=== PATIENT | male | born 1975 | race Hispanic/Latino ===

== ENCOUNTER 2020-07-15 19:59 | Emergency (ER) | payer OTHER, SELFPAY ==
--- NOTE | ~2020-07-15 | XR_ITS ---
EXAMINATION: XR chest 2V EXAM DATE: 07/15/2020 22:37 INDICATION: Cough. Chills. TECHNIQUE: Frontal and lateral projections of the chest obtained and reviewed. There is no prior braulio dy for comparison. FINDINGS: Patchy right upper lobe pneumonia. There are no pleural effusions. The cardiomediastina l silhouette is within normal limits. There is no pneumothorax suspected. The bones and soft tissue s are unremarkable. IMPRESSION: Patchy right upper lobe pneumonia. Reviewed, dictated and finalized at location A.
[2020-07-15 20:10] VITALS: BP 120/86; PULSE 99; RESP 18; TEMP 36.6; O2SAT 98
--- NOTE | 2020-07-15 22:11 | ED.URI ---
HPI - URI/Sore Throat General Chief Complaint: Upper Respiratory Infection Stated Complaint: Cough, chills Time Seen by Provider: 07/15/20 22:02 Source: patient Mode of arrival: ambulatory Limitations: no limitations History of Present Illness HPI Narrative: Patient is a 45-year-old male complaining of cough nasal congestion and body aches that started 1 week ago. Patient states that he had chills few days ago but not now. Patient denies any fever. Patient denies any chest pain or shortness of breath. Patient denies any abdominal pain, nausea, vomiting, diarrhea. Patient states that he saw his doctor 1 week ago for same complaints had a chest x-ray done here at this hospital and states that they never called him regarding the results. Related Data Home Medications Medication Instructions Recorded Confirmed albuterol sulfate INHALATION 07/15/20 Allergies Allergy/AdvReac Type Severity Reaction Status Date / Time No Known Allergies Allergy Verified 07/15/20 21:53 Review of Systems Review of Systems: All systems reviewed & are unremarkable except as noted in HPI and below Constitutional: Constitutional: Denies excessive sweating, Denies fatigue, Denies fever(s), Denies headache(s), Denies lethargy, Denies malaise, Denies weakness and Denies weight loss Eyes: Eyes: Denies blurry vision, Denies change in vision and Denies loss of vision ENT: Denies dizziness, Denies ear discharge, Denies headache(s), Denies lip swelling, Denies epistaxis, Denies neck pain, Denies throat swelling and Denies tongue swelling Cardiovascular: Cardiovascular: Denies chest pain, Denies chest pain at rest, Denies chest pain with activity, Denies diaphoresis, Denies rapid heart rate, Denies edema, Denies irregular heart rhythm, Denies lightheadedness, Denies palpitations, Denies dyspnea and Denies dyspnea on exertion Respiratory: Respiratory: Denies chest congestion, Denies hemoptysis, Denies dyspnea and Denies dyspnea on exertion Gastrointestinal: Gastrointestinal: Denies abdominal pain, Denies melena, Denies hematochezia, Denies diarrhea, Denies nausea, Denies vomiting and Denies hematemesis Musculoskeletal: Musculoskeletal: Denies abnormal gait, Denies deformity, Denies joint swelling, Denies limited range of motion, Denies neck pain and Denies numbness Neurologic: Denies Abnormal speech present, Denies abnormal gait, Denies confusion, Denies dizziness, Denies headache(s), Denies focal weakness, Denies loss of vision, Denies numbness, Denies Other visual disturbances, Denies Sensory deficit (Neuro) and Denies weakness Psychiatric: Psychiatric: Denies confusion, Denies depression, Denies auditory hallucinations, Denies homicidal ideation and Denies suicidal ideation Endocrine: Endocrine: Denies cold intolerance, Denies excessive sweating, Denies fatigue, Denies heat intolerance and Denies palpitations Hematologic/Lymphatic: Hematologic/Lymphatic: Denies easy bleeding and Denies easy bruising Allergic/Immunologic: Allergic/Immunologic: Denies lip swelling, Denies throat swelling and Denies tongue swelling PMFSH Comments Past medical history: None Family history: Negative for [place] negative for diabetes negative hypertension Social history: Non-smoker no EtOH or drug use Exam Const: General: cooperative, healthy appearing, comfortable, no acute distress, well developed, alert and awake; No confusion Orientation/consciousness: oriented to person, oriented to place, oriented to time, patient oriented x3 and No confusion Limitations: no limitations HENMT: Head: normal to inspection, normocephalic and atraumatic Ears: hearing grossly normal bilaterally, TM normal on the right and TM normal on the left General nose exam: Normal external nose present, Normal nares present and No nasal discharge present Face and sinus: normal facial exam Mouth: Yes Normal oral and palatal mucosa present, Yes lip normal, Yes tongue normal and Yes oropharynx normal Thro
[2020-07-16 00:15] VITALS: BP 133/89; PULSE 92; RESP 20; TEMP 36.8; O2SAT 97
[2020-07-16] MEDS: DOXYCYCLINE HYCLATE 100 MG TABLET PO (00:15)
== END 2020-07-16 00:15 | disposition home or self-care (01) ==
PROVIDERS: Emergency Provider Emergency Medicine; PCP Emergency Medicine
DX: J18.9 Pneumonia, unspecified organism (principal)
CPT/HCPCS: 71046; 99283; A9270

== ENCOUNTER 2020-08-04 08:07 | Outpatient (CLI) | payer OTHER, SELFPAY ==
--- NOTE | ~2020-08-04 | XR_ITS ---
XR chest 2V DATE: 08/04/2020 08:38 INDICATION: Chest pain TECHNIQUE: PA and lateral views COMPARISON: 07/15/2020 2 view chest FINDINGS: Normal heart size. No hilar or mediastinal enlargement. The lungs appear clear of infiltrat e or consolidation. No pleural effusion or pulmonary vascular congestion or pneumothorax. Degenerative spurring of the thoracic spine. IMPRESSION: No active cardiopulmonary disease Reviewed, dictated and finalized at location A.
[2020-08-04 08:32] LABS: Hematocrit 38.3 % (42.0-52.0); Mean Corpuscular HGB Conc 33.9 g/dl (32-36); Mean Corpuscular Hemoglobin 29.7 pg (26-34); Mean Corpuscular Volume 87.6 fl (80-100); Platelet Count Result 404 k/mm3 (150-375); Red Blood Count 4.37 M/mm3 (4.6-6.20); Red Cell Distribution Width 12.9 % (11.5-14.5); White Blood Count 5.7 K/mm3 (4.5-10.0)
[2020-08-04 08:42] LABS: Alanine Aminotransferase 40 U/L (4-50); Albumin Level 4.4 g/dL (3.5-5.1); Alkaline Phosphatase 99 U/L (38-126); Anion Gap 3 mmol/L (8-16); Aspartate Amino Transferase 34 U/L (17-59); Bilirubin,Total 0.5 mg/dL (0.2-1.3); Blood Urea Nitrogen 11 mg/dL (9-20); Calcium 8.7 mg/dL (8.4-10.2); Carbon Dioxide 31 mmol/L (22-30); Chloride 108 mmol/L (98-107); Cholesterol 155 mg/dL (0-200); Estimated Glomerular Filt Rate > 60; Glucose 108 mg/dL (75-110); HDL Direct 38 mg/dL; Potassium 4.1 mmol/L (3.4-5.0); Sodium 142 mmol/L (137-145); Triglycerides 96 mg/dL (<150)
[2020-08-04 08:53] LABS: LDL Cholesterol Direct 85 mg/dL
[2020-08-04 08:55] LABS: Creatinine Urine 166.2 mg/dL
[2020-08-04 09:00] LABS: MALB Creatinine Ratio 13.5 mg/g (0-30); Microalbumin Urine Random 22.5 mg/L (0-16.7)
[2020-08-04 09:01] LABS: Hemoglobin A1C 5.8 % (<5.7)
[2020-08-04 09:38] LABS: Free T4 Free Thyroxine 0.89 ng/mL (0.78-2.19)
== END 2020-08-04 08:08 | disposition home or self-care (01) ==
PROVIDERS: PCP Emergency Medicine; Visit Provider Emergency Medicine
DX: E78.5 Hyperlipidemia, unspecified (principal); J18.9 Pneumonia, unspecified organism
CPT/HCPCS: 36415; 71046; 80053; 80061; 82043; 83036; 84439; 84443; 85027

== ENCOUNTER 2021-07-06 07:47 | Outpatient (CLI) | payer OTHER, SELFPAY ==
[2021-07-06 08:20] LABS: Hematocrit 39.2 % (42.0-52.0); Hemoglobin 13.2 g/dL (14.0-18.0); Mean Corpuscular HGB Conc 33.7 g/dl (32-36); Mean Corpuscular Volume 89.1 fl (80-100); Mean Platelet Volume 9.7 fl (7.4-10.4); Platelet Count Result 348 k/mm3 (150-375); White Blood Count 6.1 K/mm3 (4.5-10.0)
== END 2021-07-06 07:48 | disposition home or self-care (01) ==
LOC: ANHLAB 07:49
PROVIDERS: PCP Emergency Medicine; Visit Provider Emergency Medicine
DX: D64.9 Anemia, unspecified (principal)
CPT/HCPCS: 36415; 85027

== ENCOUNTER → 2021-08-17 08:12 | Outpatient (CLI) | payer OTHER, SELFPAY ==
--- NOTE | ~2021-08-17 | US_ITS ---
EXAMINATION: US abdomen complete DATE: 08/17/2021 08:54 INDICATION: Right upper quadrant pain. TECHNIQUE: Multiple grayscale and Doppler ultrasound images of the abdomen were obtained. COMPARISON: None available FINDINGS: Bowel gas mostly obscures visualization of the pancreas. Echogenic liver. No surface nodula rity. Normal hepatopetal flow in the main portal vein. The gallbladder is partially collapsed, likely contributing to a measured wall thickness of up to 0.4 cm. No gallbladder wall thickening or gallsto willi detected. The normal common bile duct measures 0.3. There was no sonographic Dunlap sign. The vis ualized portions of the aorta and inferior vena cava are normal. The right kidney measures 9.5 cm. The left kidney measures 10.2 cm. The kidneys demonstrate normal pa renchymal echogenicity. There is no hydronephrosis. The spleen is normal in appearance and measures 9 .2 cm. IMPRESSION: 1. Likely steatotic liver, noting that hepatitis and fibrosis can appear similarly. 2. Otherwise normal abdominal ultrasound findings. Reviewed, dictated and finalized at location K. IMPRESSION: 1. Likely steatotic liver, noting that hepatitis and fibrosis can appear simila rly. 2. Otherwise normal abdominal ultrasound findings.
== END ==
PROVIDERS: PCP Emergency Medicine; Visit Provider Emergency Medicine
DX: R10.11 Right upper quadrant pain (principal)
CPT/HCPCS: 76700

== ENCOUNTER 2021-12-07 08:29 | Outpatient (CLI) | payer OTHER, SELFPAY ==
[2021-12-07 08:56] LABS: Hematocrit 39.4 % (42.0-52.0); Hemoglobin 13.3 g/dL (14.0-18.0); Mean Corpuscular HGB Conc 33.8 g/dl (32-36); Mean Corpuscular Hemoglobin 30.2 pg (26-34); Mean Corpuscular Volume 89.5 fl (80-100); Mean Platelet Volume 9.6 fl (7.4-10.4); Platelet Count Result 340 k/mm3 (150-375); Red Cell Distribution Width 12.9 % (11.5-14.5); White Blood Count 5.4 K/mm3 (4.5-10.0)
[2021-12-07 09:06] LABS: Appearance Urine Clear (Clear); Bilirubin Urine Negative (Negative); Blood Urine Negative (Negative); Color Urine Yellow (Yellow); Glucose Urine UA Negative (Negative); Ketones Urine Negative (Negative); Leukocyte Esterase Ur Negative LEU/UL (NEGATIVE); Nitrate Urine Negative (Negative); Protein Urine Negative (Negative); Specific Grav Ur 1.025 (1.001-1.035); Urobilinogen Urine 0.2 mg/dL (<2.0); pH Urine 5.5 (5.0-9.0)
[2021-12-07 09:10] LABS: Alanine Aminotransferase 25 U/L (6-50); Albumin Level 4.6 g/dL (3.5-5.1); Alkaline Phosphatase 92 U/L (38-126); Anion Gap 8 mmol/L (8-16); Aspartate Amino Transferase 27 U/L (17-59); Bilirubin,Total 0.6 mg/dL (0.2-1.3); Blood Urea Nitrogen 12 mg/dL (9-20); Carbon Dioxide 27 mmol/L (22-30); Chloride 107 mmol/L (98-107); Cholesterol 173 mg/dL (0-200); Estimated Glomerular Filt Rate > 60; Glucose 99 mg/dL (65-110); HDL Direct 41 mg/dL; Sodium 142 mmol/L (137-145); Triglycerides 125 mg/dL (<150)
[2021-12-07 09:11] LABS: Hemoglobin A1C 5.5 % (<5.7)
[2021-12-07 09:22] LABS: LDL Cholesterol Direct 90 mg/dL
[2021-12-07 09:28] LABS: Add Urine Microscopic? NO
[2021-12-07 09:31] LABS: Creatinine Urine 156.8 mg/dL
[2021-12-07 09:34] LABS: MALB Creatinine Ratio 3.9 mg/g (0-30); Microalbumin Urine Random 6.1 mg/L (0-16.7)
[2021-12-07 09:38] LABS: Prostate Specific Antigen 0.5 ng/mL (< OR = 4.0)
[2021-12-07 09:45] LABS: Free T4 Free Thyroxine 1.02 ng/mL (0.78-2.19)
[2021-12-07 10:00] LABS: Hepatitis B Surface Antigen Negative (Negative)
[2021-12-07 10:06] LABS: HAV RESULT Negative (Negative); Hepatitis B Core IgM Result Negative (Negative)
[2021-12-07 10:18] LABS: Hepatitis C Virus Antibody Negative (Negative)
== END 2021-12-07 08:30 | disposition home or self-care (01) ==
LOC: ANHLAB 08:31
PROVIDERS: PCP Emergency Medicine; Visit Provider Emergency Medicine
DX: E78.5 Hyperlipidemia, unspecified (principal); M19.90 Unspecified osteoarthritis, unspecified site; K76.0 Fatty (change of) liver, not elsewhere classified
CPT/HCPCS: 36415; 80053; 80061; 80074; 81003; 82043; 83036; 84153; 84439; 84443; 85027

== ENCOUNTER 2022-06-10 14:51 | Outpatient (CLI) | payer OTHER, SELFPAY ==
[2022-06-10 15:09] LABS: Basophils Percent Auto 0.7 % (0.2-1.2); Eosinophils Absolute Auto 0.1 K/mm3 (0-0.3); Eosinophils Percent Auto 2.1 % (0-4.4); Hematocrit 40.2 % (42.0-52.0); Hemoglobin 13.9 g/dL (14.0-18.0); Immature Granulocyte Absolute 0.03 K/mm3 (0.00-0.031); Immature Granulocyte Percent A 0.5 % (0-0.5); Lymphocytes Absolute Auto 1.83 K/mm3 (0.9-3.2); Lymphocytes Percent Auto 31.7 % (18.3-44.2); Mean Corpuscular HGB Conc 34.6 g/dl (32-36); Mean Corpuscular Hemoglobin 30.9 pg (26-34); Mean Corpuscular Volume 89.3 fl (80-100); Mean Platelet Volume 9.8 fl (7.4-10.4); Monocytes Absolute Auto 0.7 K/mm3 (0.1-0.6); Monocytes Percent Auto 11.2 % (2.6-8.5); Neutrophils Absolute Auto 3.1 K/mm3 (1.3-6.7); Neutrophils Percent Auto 53.8 % (45.5-73.1); Platelet Count Result 410 k/mm3 (150-375); Red Cell Distribution Width 12.7 % (11.5-14.5); White Blood Count 5.8 K/mm3 (4.5-10.0)
[2022-06-10 16:50] LABS: Iron 68 ug/dL (49-181)
[2022-06-10 16:55] LABS: Alanine Aminotransferase 42 U/L (6-50); Albumin Level 4.6 g/dL (3.5-5.1); Alkaline Phosphatase 110 U/L (38-126); Anion Gap 7 mmol/L (8-16); Aspartate Amino Transferase 37 U/L (17-59); Bilirubin,Total 0.4 mg/dL (0.2-1.3); Blood Urea Nitrogen 16 mg/dL (9-20); Calcium 8.7 mg/dL (8.4-10.2); Carbon Dioxide 32 mmol/L (22-30); Chloride 102 mmol/L (98-107); Estimated Glomerular Filt Rate > 60; Glucose 107 mg/dL (65-110); Potassium 3.9 mmol/L (3.4-5.0); Sodium 141 mmol/L (137-145)
[2022-06-10 16:59] LABS: Percent Iron Saturation 21 % (20-50)
[2022-06-10 18:35] LABS: Folic Acid 7.9 ng/mL (2.76->20)
== END 2022-06-10 14:52 | disposition home or self-care (01) ==
PROVIDERS: PCP Emergency Medicine; Visit Provider Internal Medicine Hematology & Oncology
DX: D64.9 Anemia, unspecified (principal)
CPT/HCPCS: 36415; 80053; 82607; 82728; 82746; 83540; 83550; 85025

== ENCOUNTER 2022-11-22 07:23 | Outpatient (CLI) | payer OTHER, SELFPAY ==
[2022-11-22 08:20] LABS: Appearance Urine Clear (Clear); Bilirubin Urine Negative (Negative); Blood Urine Negative (Negative); Color Urine Yellow (Yellow); Glucose Urine UA Negative (Negative); Hematocrit 40.2 % (42.0-52.0); Hemoglobin 13.6 g/dL (14.0-18.0); Ketones Urine Negative (Negative); Leukocyte Esterase Ur Negative LEU/UL (NEGATIVE); Mean Corpuscular HGB Conc 33.8 g/dl (32-36); Mean Corpuscular Hemoglobin 30.4 pg (26-34); Mean Corpuscular Volume 89.7 fl (80-100); Mean Platelet Volume 9.9 fl (7.4-10.4); Nitrate Urine Negative (Negative); Platelet Count Result 360 k/mm3 (150-375); Protein Urine Negative (Negative); Red Blood Count 4.48 M/mm3 (4.6-6.20); Red Cell Distribution Width 12.5 % (11.5-14.5); Specific Grav Ur 1.012 (1.001-1.035); Urobilinogen Urine 0.2 mg/dL (<2.0); White Blood Count 5.3 K/mm3 (4.5-10.0)
[2022-11-22 08:48] LABS: Add Urine Microscopic? NO
[2022-11-22 09:06] LABS: Creatinine Urine 99.4 mg/dL
[2022-11-22 09:21] LABS: Free T4 Free Thyroxine 1.12 ng/mL (0.78-2.19); Vitamin D 25 Hydroxy 31.8 ng/mL
[2022-11-22 09:47] LABS: MALB Creatinine Ratio < 6.0 mg/g (0-30); Microalbumin Urine Random < 6.0 mg/L (0-16.7)
[2022-11-22 10:46] LABS: Alanine Aminotransferase 38 U/L (6-50); Albumin Level 4.4 g/dL (3.5-5.1); Alkaline Phosphatase 91 U/L (38-126); Anion Gap 9 mmol/L (8-16); Aspartate Amino Transferase 35 U/L (17-59); Bilirubin,Total 0.5 mg/dL (0.2-1.3); Blood Urea Nitrogen 7 mg/dL (9-20); Calcium 8.6 mg/dL (8.4-10.2); Carbon Dioxide 28 mmol/L (22-30); Chloride 106 mmol/L (98-107); Cholesterol 206 mg/dL (0-200); Estimated Glomerular Filt Rate > 60; Glucose 93 mg/dL (65-110); HDL Direct 34 mg/dL; Hemoglobin A1C 5.5 % (<5.7); Potassium 3.8 mmol/L (3.4-5.0); Sodium 143 mmol/L (137-145); Triglycerides 178 mg/dL (<150)
[2022-11-22 10:56] LABS: LDL Cholesterol Direct 123 mg/dL
[2022-11-22 11:12] LABS: Prostate Specific Antigen 0.5 ng/mL (< OR = 4.0)
== END 2022-11-22 07:24 | disposition home or self-care (01) ==
LOC: ANHLAB 07:25
PROVIDERS: PCP Emergency Medicine; Visit Provider Emergency Medicine
DX: E11.9 Type 2 diabetes mellitus without complications (principal); K76.0 Fatty (change of) liver, not elsewhere classified; E78.5 Hyperlipidemia, unspecified; H53.8 Other visual disturbances
CPT/HCPCS: 36415; 80053; 80061; 81003; 82043; 82306; 83036; 84153; 84439; 84443; 85027

== ENCOUNTER 2024-09-17 07:37 | Outpatient (CLI) | payer OTHER, SELFPAY ==
--- OUTSIDE RECORDS SUMMARY | 2024-09-17 07:43 | XMS_ITS | Clinical Summary ---
Author Organization [facility] Address [address] [place] [address] Care Team Providers Care Junior Graphic Designer Name Role Phone Unavailable Primary Care Provider Unavailabl e Allergies No known active allergies Medications No known medications Active Problems No known active problems Family History Medical History Relation Name Comments Diabetes Brother No Known Problems Daughter No Known Problems Father Diabetes Mother No Known Problems Son 1 No Known Problems Son 2 No Known Problems Son 3 Relation Name Status Comments Brother Alive Daughter Alive Father Mother Alive Son 1 Alive Son 2 Alive Son 3 Alive Social History Tobacco Use Types Packs/Day Years Used Date Smoking Tobacco: Never Smokeless Tobacco: Never Tobacco Cessation:Counseling Given: Not Answered Alcohol Use Standard Drinks/Week Comments Yes 7 (1 standard drink = 0.6 oz pur e alcohol) Sex and Gender Information Value Date Recorded Sex Assigned at Not on file Legal Sex Male 11:48 AM CDT Gender Identity Not on file Sexual Orientation Not on file Last Filed Vital Signs Vital Sign Reading Time Taken Comments Blood Pressure 126/75 07/15/2022 1:57 PM CDT Pulse 73 07/15/2022 1:57 PM CDT Temperature 36.6 C (97.8 F) 07/15/2022 1:57 PM CDT Respiratory Rate 10 07/15/2022 1:57 PM CDT Oxygen Saturation 98% 07/15/2022 1:57 PM CDT Inhaled Oxygen Concentration - - Weight 90.7 kg (200 lb) 07/15/2022 1:57 PM CDT Height 167.6 cm (5' 6) 06/10/2022 1:43 PM MARIONETTE PERFORMER Body Mass Index 32.28 06/10/2022 1:43 PM MARIONETTE PERFORMER Plan of Treatment Health Maintenance Due Date Last Done Comments DTAP/TDAP/TD VACCINES (1 - Tdap) 01/04/1992 HEPATITIS B VACCINES (1 of 3 - 19+ 3-dose series) 12/07 COLORECTAL SCREENING 2018 Colorectal Cancer Screening 2018 FIT-DNA Q 3 years 2018 FIT/FOBT Q 1 year 2018 Flex Sig/CT Colonography Q 5 years 2018 ZOSTER VACCINE (1 of 2) 2023 INFLUENZA VACCINE (#1) 2023 Insurance Member Subscriber Plan / Payer (Ef fective 2022-Present) Name:Eddie Pond Relation to Subscriber:Self Name:Eddie Pond Payer ID:[id number] (NAIC) Type:HMO Address: [facility] [address] [place] [id number]
--- OUTSIDE RECORDS SUMMARY | 2024-09-17 07:43 | XMS_ITS | Referral Summary ---
Author Organization [facility] Address [address] [place] [address] Care Team Providers Care Fpga Engineer Name Role Phone Adrien Potter MD Primary Care Provider [phone] Social History Tobacco Use Types Packs/Day Years Used Date Smoking Tobacco: Never Assessed Personal Safety Answer Date Recorded Getting School Help Needed Not on file 06/20 Sex and Gender Information Value Date Recorded Sex Assigned at Not on file Legal Sex Male 7:45 PM SUPERVISOR MIXING Gender Identity Not on file Sexual Orientation Not on file Last Filed Vital Signs Vital Sign Reading Time Taken Comments Blood Pressure 126/77 02/28/2021 12:06 PM SUPERVISOR MIXING Pulse 72 02/28/2021 12:06 PM SUPERVISOR MIXING Temperature 36.6 C (97.8 F) 02/28/2021 12:06 PM SUPERVISOR MIXING Respiratory Rate 18 02/28/2021 12:06 PM SUPERVISOR MIXING Oxygen Saturation 99% 02/28/2021 12:06 PM SUPERVISOR MIXING Inhaled Oxygen Concentration - - Weight 90.7 kg (200 lb) 02/28/2021 12:06 PM SUPERVISOR MIXING Height 165.1 cm (5' 5) 07/11/2018 4:59 PM CDT Body Mass Index 33.28 07/11/2018 4:59 PM CDT Plan of Treatment Not on file Insurance [facility] HMO/PPO Address: [facility] [address] [place] [address] Care Teams Fpga Engineer Relationship Specialty Start Date End Date Adrien Potter MD PCP - General 07/09/19
--- OUTSIDE RECORDS SUMMARY | 2024-09-17 07:43 | XMS_ITS | Clinical Summary ---
Author Organization [facility] Care Team Providers Care Dynamite Packing Machine Feeder Name Role Phone Unavailable Primary Care Provider Unavailabl e Social History Tobacco Use Types Packs/Day Years Used Date Smoking Tobacco: Never Assessed Sex and Gender Information Value Date Recorded Sex Assigned at Not on file Legal Sex Male 11:41 AM DRY MIXER Gender Identity Not on file Sexual Orientation Not on file Plan of Treatment Health Maintenance Due Date Last Done Comments Hepatitis C Virus (HCV) Screening 1973 TdaP Immunization 1973 Hepatitis B Immunization (1 of 3 - 19+ 3-dose series) 01/04/1992 Colonoscopy 2018 Colorectal Cancer Screening 2018 Cologuard 2023 Immunochemical Fecal Occult Blood 2023 Pneumococcal Immunization (5 0+ years) (1 of 1 - PCV) 2023 Zoster Immunization (1 of 2) 2023 Influenza Immunization (#1) 2023 SARS-COV-2 Immunization ( - season) 2023 Respiratory Syncytial Virus (RSV) Immunization (Adult) (1 - 1-dose 75+ series) 01/04/2048 Meningococcal Immunization (ACWY) Aged Out No longer eligible based on patient's age to complete this topic Pneumococcal Immunization Combined Aged Out No longer eligible based on patient's age to complete this topic Rotavirus Immunization Aged Out No lo nger eligible based on patient's age to complete this topic
--- OUTSIDE RECORDS SUMMARY | 2024-09-17 07:43 | XMS_ITS | Clinical Summary ---
Author Organization [facility] Address [facility] [place] [address] Care Team Providers Care Cardiology Clinical Nurse Specialist Name Role Phone Adrien Potter MD Primary Care Provider [phone] Social History Tobacco Use Types Packs/Day Years Used Date Smoking Tobacco: Never Assessed Personal Safety Answer Date Recorded Getting School Help Needed Not on file 06/20 Sex and Gender Information Value Date Recorded Sex Assigned at Not on file Legal Sex Male 7:45 PM TOOL PLANNER Gender Identity Not on file Sexual Orientation Not on file Last Filed Vital Signs Vital Sign Reading Time Taken Comments Blood Pressure 126/77 02/28/2021 12:06 PM TOOL PLANNER Pulse 72 02/28/2021 12:06 PM TOOL PLANNER Temperature 36.6 C (97.8 F) 02/28/2021 12:06 PM TOOL PLANNER Respiratory Rate 18 02/28/2021 12:06 PM TOOL PLANNER Oxygen Saturation 99% 02/28/2021 12:06 PM TOOL PLANNER Inhaled Oxygen Concentration - - Weight 90.7 kg (200 lb) 02/28/2021 12:06 PM TOOL PLANNER Height 165.1 cm (5' 5) 07/11/2018 4:59 PM CDT Body Mass Index 33.28 07/11/2018 4:59 PM CDT Plan of Treatment Not on file Insurance [facility] H[facility]/PPO Address: [facility] [address] [place] [address] Care Teams Cardiology Clinical Nurse Specialist Relationship Specialty Start Date End Date Adrien Potter MD PCP - General 07/09/19
--- OUTSIDE RECORDS SUMMARY | 2024-09-17 07:43 | XMS_ITS | CONTINUITY OF CARE DOCUMENT ---
Author Name lorenza britt Address Unknown Organization [facility] Address [address] [place] [address] [address] [place] [address] Phone [phone] Care Team Providers Care Crime Scene Specialist Name Role Phone Agustin Mary MD Unavailable KATIE NAZARIO MD Unavailable [phone] KATIE NAZARIO MD Unavailable [phone] PROBLEMS Condition Status Date Provider Notes Cardiology examination active Agustin Mary MD Hyperlipidemia active Agustin Mary MD Chest pain-type to be determined active Meg Mary MD ENCOUNTERS Date Type Provider Location Encounter Diag nosis - In-person encounter Office Visit Agustin Mary MD [facility] Cardiology examinationHyperlipidemiaChest pain-type to be determined VITAL SIGNS Date Observation Value Provider weight E&M 205 [lb_av] Charlee Reyna Body Mass Index (Ratio) 34.11 kg/m2 Juli Mary MD blood pressure, cuff size regular Ke rri Mainor blood pressure, diastolic 82 mm[Hg] Ke rri Mainor blood pressure, systolic 142 mm[Hg] Jose Hayward oxygen saturation, oximetry 98 % Tracy Hayward respiratory rate E&M 12 /min Tracy beckford pulse rate 101 /min Tracy Naylornagamerlinelizabethyahaira lder weight E&M 205 [lb_av] Tracy Butler lder height E&M 65 [in_i] Tracy Ramseykel lder HISTORY OF MEDICATION USE No Known Medication SOCIAL HISTORY Date Observation Value Provider drug use no Agustin Mary MD alcohol use, average drinks per day social Agustin Mary MD alcohol use yes Agustin Mary MD social history E&M S moking History: P chester has never smoked. Agustin Mary MD social history reviewed E&M revi ewed - no changes required Agustin Mary MD smoking status Never smoker Tracy spears INSURANCE PROVIDERS Payer name Policy type / Coverage type [place] red libertarian ID [facility] [id number] ADVANCE DIRECTIVES Name Date DISCUSSED - NO DECISION MADE TREATMENT PLAN Date Name Performer [id number],C,W ill check a Calcium Score, Routine stress test and Echo. The pain is atypical. Once the results are available, further recommendations. Agustin Mary MD [id number],S,H e is only taking his medicines intermittantly. I will do a Calcium score to see if he needs it more often or not. Agustin Mary MD Cardiology:Will chec k a Calcium Score, Routine stress test and Echo. The pain is atypical. Once the results are available, further recommendations. Agustin Mary MD Cardiology:He is onl y taking his medicines intermittantly. I will do a Calcium score to see if he needs it more often or not. Agustin Mary MD Date Name CT, Coronary Calcium Score Stress Routine Complete Echo HISTORY OF PROCEDURES Procedure Date Procedure Name Provider Procedure Notes S tatus CT- Coronary CA score Rd Shirley MD completed EKG Agustin Mary MD completed
--- OUTSIDE RECORDS SUMMARY | 2024-09-17 07:43 | XMS_ITS | Clinical Summary ---
Author Organization [facility] Address [address] [place] [address] Care Team Providers Care Chimney Builder Name Role Phone None, Physician Primary Care Provider Unavailabl e Source Comments [facility],non-owned Affiliates and Associated Physician Practices is amultiple site organization consisting of ambulatory clinics and hospital sitesin [place], [place], [place] and [place]. This disclosure is being madepursuant to the Care Everywhere program and may not contain all information available regarding this patient. Last updated 17.[facility] [employer] Allergies No known active allergies Active Problems Problem Noted Date Diagnosed Date Retained foreign body 12/12/2022 Resolved Problems Problem Noted Date Diagnosed Date Resolved Date Sprain and strain of ankle 12/12/2022 0 12/12/2022 Social History Tobacco Use Types Packs/Day Years Used Date Smoking Tobacco: Never Assessed Sex and Gender Information Value Date Recorded Sex Assigned at Not on file Legal Sex Male 8:43 PM CDT Gender Identity Not on file Sexual Orientation Not on file Last Filed Vital Signs Vital Sign Reading Time Taken Comments Blood Pressure - - Pulse - - Temperature - - Respiratory Rate - - Oxygen Saturation - - Inhaled Oxygen Concentration - - Weight 83 kg (183 lb) 12/12/2022 2:06 PM CDT Height - - Body Mass Index - - Plan of Treatment Health Maintenance Due Date Last Done Comments COLOGUARD (AGES 45-75) - COL ON CA SCREENING 1973 COLON MONITORING 1973 COLONOSCOPY - COLON CA SCREENING 1973 CT COLONOGRAPHY - COLON CA SCREENING 1973 Colorectal Cancer Screening 1973 FIT - COLON CA SCREENING 1973 FLEX SIG - COLON CA SCREENING 1973 LIPID TESTING 1973 HIV SCREENING 01/04/1988 HEPATITIS C SCREENING 12/30/1990 DTAP/TDAP/TD VACCINES (1 - Tdap) 01/04/1992 HEPATITIS B VACCINE (1 of 3 - 19+ 3-dose series) 01/04/1992 PNEUMOCOCCAL VACCINE 50+ (1 of 1 - PCV) 2023 ZOSTER VACCINE (1 of 2) 2023 COVID-19 VACCINE (1 - 2023-2 5 season) 2023 DEPRESSION SCREENING 04/06/2024 INFLUENZA VACCINE (Season Ended) 2024 HIB VACCINE Aged Out No longer eligi ble based on patient's age to complete this topic HPV VACCINE Aged Out No longer eligi ble based on patient's age to complete this topic MENINGOCOCCAL (Group B) VACC INE SHARED DECISION-MAKING Aged Out No longer eligibl e based on patient's age to complete this topic MENINGOCOCCAL GROUPS A/C/Y/W VACCINE Aged Out No longer eligible b ased on patient's age to complete this topic Insurance Care Teams Chimney Builder Relationship Specialty Start Date End Date None, Physician [address] [place] [address] PCP - General 12/12/22
[2024-09-17 08:51] LABS: Cholesterol 247 mg/dL (0-200); HDL Direct 50 mg/dL; Triglycerides 123 mg/dL (<150)
[2024-09-17 09:02] LABS: LDL Cholesterol Direct 145 mg/dL
[2024-09-17 09:56] LABS: Hemoglobin A1C 5.7 % (<5.7)
== END 2024-09-17 07:38 | disposition home or self-care (01) ==
LOC: ANHLAB 07:41
PROVIDERS: PCP Emergency Medicine; Visit Provider Emergency Medicine
DX: E78.5 Hyperlipidemia, unspecified (principal)
CPT/HCPCS: 36415; 80061; 83036